=== PATIENT | female | born 1985 ===

== ENCOUNTER 2022-06-07 12:36 | Inpatient (IN) | payer OTHER ==
[~2022-06-07] VITALS: Ht 157.5 cm; Wt 72.6 kg
[2022-06-15] MEDS ORDERED: PRENATAL + DHA1 EAC1 (08:12)
== END 2022-06-18 13:56 | disposition home or self-care (01) | DRG 785 ==
LOC: OB/GYN 06-14 11:32 → LDR 06-14 11:32 → O/R 06-14 18:04 → OB/GYN 06-14 19:15
PROVIDERS: ADMIT Obstetrics & Gynecology; ATTEND Obstetrics & Gynecology
PROC: 0UB70ZZ Excision of Bilateral Fallopian Tubes, Open Approach (ICD-10-PCS; 2022-06-14)
PROC: 0DNW0ZZ Release Peritoneum, Open Approach (ICD-10-PCS; 2022-06-14)
PROC: 4A1HXCZ Monitoring of Products of Conception, Cardiac Rate, External Approach (ICD-10-PCS; 2022-06-14)
PROC: 10D00Z1 Extraction of Products of Conception, Low, Open Approach (ICD-10-PCS; principal; 2022-06-14 17:15)
DX: O34.211 Maternal care for low transverse scar from previous cesarean delivery (principal); Z3A.39 39 weeks gestation of pregnancy; Z37.0 Single live birth; Z30.2 Encounter for sterilization